=== PATIENT | female | born 1955 | race Caucasian/White ===

== ENCOUNTER → 2021-02-28 | Outpatient (CLI) | payer BC ==
--- NOTE | 2021-02-28 16:52 | KCIC ---
XR FOOT_RIGHT 3 VIEWS DATE: 02/28/2021 2:56 PM INDICATION: Lateral foot and heel pain. COMPARISON: None. FINDINGS: Bones: There is no evidence of acute fracture or dislocation. Plantar calcaneal enthesophyte. Joints: The joint spaces are normal. Miscellaneous: None. IMPRESSION: 1. No acute osseous abnormality. 2. Plantar calcaneal enthesophyte. Electronically signed by: Kam Gibbs MD (02/28/2021 4:50 PM) [id number]
--- NOTE | 2021-02-28 16:53 | KCIC ---
EXAM: 3 Views Left Shoulder DATE: 02/28/2021 2:56 PM INDICATION: Reason: Lt shoulder pain, numbness Lt arm / Spl. Instructions: / History: COMPARISON: No Prior FINDINGS: There is no evidence for acute fracture or dislocation. AC joint is congruent. Mild AC joint degenera tive change. Humeral head is not high riding. IMPRESSION: 1. No acute fracture or dislocation. Electronically signed by: Rojelio Galvan MD (02/28/2021 4:50 PM) CESAR
== END ==
LOC: KCIC 14:52
PROVIDERS: ATTEND Family Medicine
DX: M19.011 Primary osteoarthritis, right shoulder (principal); M77.31 Calcaneal spur, right foot
CPT/HCPCS: 73030; 73630